=== PATIENT | female | born 1995 | race Caucasian/White ===

== ENCOUNTER 2019-10-04 11:02 | Emergency (ER) | payer SELFPAY ==
[~2019-10-04] VITALS: Ht 170.2 cm; Wt 82.1 kg
[2019-10-04 11:09] VITALS: Ht 170.2 cm; Wt 82.1 kg
[2019-10-04 11:52] VITALS: BP 126/84
== END 2019-10-04 11:52 | disposition home or self-care (01) ==
LOC: ED 11:02
DX: O99.511 Diseases of the respiratory system complicating pregnancy, first trimester (principal); J02.9 Acute pharyngitis, unspecified; Z3A.01 Less than 8 weeks gestation of pregnancy